=== PATIENT | male | born 1985 | race Caucasian/White ===

== ENCOUNTER 2018-03-26 23:55 | Emergency (ER) | payer OTHER, MEDICAID, SELFPAY ==
[2018-03-26 23:57] VITALS: BP 140/113; PULSE 53; RESP 16; TEMP 36.5; O2SAT 100; BMI 28.3
[2018-03-27] MEDS: SODIUM CHLORIDE 0.9% 1,000 ML 150 ML IV (00:07)
[2018-03-27 00:20] LABS: Add Manual Diff / Slide Review NO; Basophils Percent Auto 1.3 % (0-2); Eosinophils Percent Auto 3.9 % (2-4); Hematocrit 41.7 % (41-53); Lymphocytes Percent Auto 49.6 % (25-40); Mean Corpuscular HGB Conc 33.5 % (30-36); Mean Corpuscular Hemoglobin 28.6 PG (26-34); Mean Corpuscular Volume 85.3 fL (80-100); Monocytes Percent Auto 9.9 % (3-14); Neutrophils Absolute Auto 1500 /uL (3000-5900); Neutrophils Percent Auto 35.3 % (50-75); Platelet Count 218 X10^3/uL (150-400); Red Blood Cell Count 4.89 X10^6/uL (4.5-5.9); Red Cell Distribution Width 12.7 % (11.6-14.8); White Blood Cell Count 4.4 X10^3/uL (4.5-11.0)
--- NOTE | 2018-03-27 00:20 | PC.NURSE ---
fluids increased to 999ml/hr per [facility]
[2018-03-27 00:31] LABS: Lactate (Lactic Acid) 1.6 mmol/L (0.7-2.1)
--- NOTE | 2018-03-27 00:31 | PC.NURSE ---
pt given telephone to call girlfriend [phone]
[2018-03-27 00:39] LABS: Acetaminophen < 10 ug/mL (10-30); Alanine Aminotransferase 31 IU/L (21-72); Albumin 4.6 g/dL (3.5-5.0); Albumin Globulin Ratio 1.6 (1.0-2.8); Alkaline Phosphatase 59 U/L (38-126); Aspartate Aminotransferase 16 IU/L (17-59); BUN Creatinine Ratio 25.6 (6-22); Bilirubin Total 0.4 mg/dL (0.2-1.3); Bilirubin Unconjugated 0.2 mg/dL (0.0-1.1); Blood Urea Nitrogen 23 mg/dL (9-20); Calcium 9.1 mg/dL (8.4-10.2); Carbon Dioxide 27 mmol/L (22-32); Chloride 103 mmol/L (98-107); Estimated Glomerular Filt Rate > 60.0 mL/min (>60); Ethanol (ETOH) < 10 mg/dL; Globulin 2.8 g/dL (1.7-4.1); Glucose 122 mg/dL (70-100); HEMOLYSIS < 15 (0-50); Potassium 4.1 mmol/L (3.4-5.1); Sodium 145 mmol/L (137-145); Total Protein 7.4 g/dL (6.3-8.2)
[2018-03-27 00:44] LABS: Salicylate < 1.0 mg/dL (<20)
[2018-03-27 00:45] VITALS: BP 122/45; PULSE 66; O2SAT 100
--- NOTE | 2018-03-27 01:17 | PC.NURSE ---
pt is getting restless stating I'm getting stir crazy here man. Pt informed that provider has been notified to come talk to him and will be there soon.
[2018-03-27 01:31] LABS: Urine Amphetamines Positive (Negative); Urine Barbiturates Negative (Negative); Urine Benzodiazepines Positive (Negative); Urine Cocaine Negative (Negative); Urine MDMA Negative (Negative); Urine Methadone Negative (Negative); Urine Methamphetamines Positive (Negative); Urine Morphine/Opi cutoff 2000 Positive (Negative); Urine Oxycodone Positive (Negative); Urine Phencyclidine Negative (Negative); Urine Tetrahydrocannabinol Positive (Negative); Urine Tricyclic Antidepressant Negative (Negative)
[2018-03-27 01:57] VITALS: BP 138/72; PULSE 71; RESP 17; O2SAT 100
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
== END 2018-03-27 01:59 | disposition home or self-care (01) ==
PROVIDERS: Emergency Provider Emergency Medicine; Family Provider Family Medicine; PCP Family Medicine
DX: T40.1X1A Poisoning by heroin, accidental (unintentional), initial encounter (principal)
CPT/HCPCS: 36415; 80053; 80076; 80305; 80320; 80329; 83605; 85025; 96360; 99284; G0480

== ENCOUNTER 2024-08-25 17:53 | Emergency (ER) | payer SELFPAY ==
[2024-08-25 18:00] VITALS: BP 138/75; PULSE 86; RESP 16; TEMP 36.7; O2SAT 97; BMI 29.0
--- NOTE | 2024-08-25 18:50 | ED.WOUNDLAC ---
HPI - Wound/Laceration General Chief Complaint: Wound/Laceration Stated Complaint: thumb laceration Time Seen by Provider: 08/25/24 18:40 Source: patient Mode of arrival: Ambulatory History of Present Illness HPI narrative: Patient was a 38-year-old male who is here for evaluation of a laceration to his right thumb that occurred when he was using a knife at home. He was unsure when his last tetanus shot was. He covered it with a bandage after washing it out a small amount at home. No other injuries from the event. Related Data Allergies Allergy/AdvReac Type Severity Reaction Status Date / Time No Known Allergies Allergy Uncoded 01/05/18 13:03 Review of Systems Review of Systems Narrative: See HPI Patient History Social History Smoking Status: Current every day smoker Smoking Status: Current every day smoker tobacco type: vaping alcohol intake frequency: 0-2 drinks per day Substance Use Type: marijuana, heroin and methamphetamine Exam Initial Vital Signs Initial Vital Signs: Vital Signs Temperature 98.0 F 08/25/24 18:00 Pulse Rate 86 08/25/24 18:00 Respiratory Rate 16 08/25/24 18:00 Blood Pressure 138/75 08/25/24 18:00 Pulse Oximetry 97 08/25/24 18:00 Oxygen Delivery Method Room Air 08/25/24 18:00 Skin Other: Patient with a 2 cm total length flap laceration to the pad of the right thumb. Extrem Other: Full range of motion of the IP joint and MCP joint of the right thumb. The thumb nail is intact. Procedures Laceration Repair Laceration 1: Site: other (Thumb) Side (If applicable): right Size (cm): 2 Description: flap Depth: simple, single layer Local Anesthetic: lidocaine 1% Pre-repair: wound explored, irrigated extensively and deep structures intact Skin layer closed with: nylon Skin layer suture size: 5-0 Number of sutures: 9 Technique: simple, interrupted Nerve Block Nerve Block 1: Local Anesthetic: lidocaine 1% Amount of anesthesia used (mL): 4 Side: right Nerve Blocks: digital Procedure Successful: Yes Patient Tolerated Procedure: Well Complications: none Course Orders Ordered: Discontinued Medications Bacitracin (Bacitracin Oint 0.9 Gm Pckt) 1 applic TOP NOW ONE Stop: 08/25/24 19:50 Last Admin: 08/25/24 19:57 Dose: 1 applic Documented By: THUY Diphtheria/Tetanus/Acell Pertussis (Tet,Diph,Pertuss(Acell),Vac/Pf 0.5 Ml Syringe) 0.5 ml IM .ONCE ONE Stop: 08/25/24 18:15 Last Admin: 08/25/24 18:51 Dose: 0.5 ml Documented By: MITCH Ibuprofen (Ibuprofen 400 Mg Tablet) 800 mg PO NOW ONE Stop: 08/25/24 19:50 Last Admin: 08/25/24 19:57 Dose: 800 mg Documented By: THUY Vital Signs Vital signs: Vital Signs - 8 hr 08/25/24 18:00 Temperature 98.0 F Pulse Rate 86 Respiratory Rate 16 Blood Pressure 138/75 Pulse Oximetry 97 Oxygen Delivery Method Room Air MDM - Wound/Laceration MDM Narrative Medical decision making narrative: Patient's tetanus was updated today. Laceration was closed as described above. Was superficial laceration. No indication for radiologic studies. He was given care instructions and return precautions. Expressed understanding and agreement with plan. Discharge Plan Departure Patient Disposition: Home Clinical Impression: Laceration Instructions: DI for Laceration Repair Activity Restrictions/Additional Instructions: Leave the bandage that was placed today in place for the next 24 hours. Afterward you can take it off. You can wash your hands like normal. A topical antibiotic ointment such as bacitracin or Neosporin as appropriate. The stitches are not absorbable. They will need to be removed in 7-10 days. You can go to your primary doctor or the walk-in clinic for this. Return to the emergency department for new or worsening symptoms. Referrals: Brandon Go MD [Primary Care Provider] - Stand Alone Forms: Patient Portal/API/Survey
[2024-08-25] MEDS: TET,DIPH,PERTUSS(ACELL),VAC/PF 0.5 ML SYRINGE IM (18:51)
[2024-08-25] MEDS: BACITRACIN OINT 0.9 GM PCKT 1 APPLIC TOP (19:57)
[2024-08-25] MEDS: IBUPROFEN 400 MG TABLET 800 MG PO (19:57)
== END 2024-08-25 20:05 | disposition home or self-care (01) ==
PROVIDERS: Emergency Provider Emergency Medicine; Family Provider Family Medicine; PCP Family Medicine
DX: S61.011A Laceration without foreign body of right thumb without damage to nail, initial encounter (principal); W26.0XXA Contact with knife, initial encounter; Z23 Encounter for immunization
CPT/HCPCS: 12001; 64450; 90471; 99283; 90715